=== PATIENT | male | born 1950 | race Caucasian/White ===

== ENCOUNTER 2019-02-19 15:29 | Emergency (ER) | payer MEDICARE ==
[~2019-02-19] VITALS: Ht 154.9 cm; Wt 75.9 kg
[~2019-02-19 15:29] MED LIST: CEPH-443 PO; CLOT30CR24 TOP
[2019-02-19 15:35] VITALS: Ht 154.9 cm; Wt 75.9 kg
--- NOTE | 2019-02-19 15:56 | ERD ---
ER Documentation Chief Complaint Chief Complaint R groin/leg swelling X 6 wks, intermittent pain 06/23 HPI 68-year-old male, with history of hypertension and CHF, currently on Xarelto, presents to the emergency department, complaining of 6 weeks with progressive worsening of right lower extremity edema and pain. The patient denies history of recent traveling, no history of malignancy, according to the patient, no history of pulmonary embolism or DVT. The patient has a primary care doctor at [facility]. ROS All systems reviewed and are negative except as per history of present illness. Medications Home Meds Active Scripts Tramadol HCl (Tramadol HCl) 50 Mg Tablet, 50 MG PO QHS PRN for PAIN, #10 TAB Prov:KATHRYN ZUNIGA MD 02/19/19 Cephalexin* (Keflex*) 500 Mg Capsule, 500 MG PO BID for 7 Days, CAP Prov:NICOLE JACOBSEN NP 07/26/15 Clotrimazole* (Clotrimazole* AF) 1% - 30 Gm Cream.gm., 1 APPLIC TOP BID for 7 Days, TUB Prov:NICOLE JACOBSEN NP 07/26/15 Allergies Allergies: Coded Allergies: No Known Allergy (Unverified , 07/26/15) PMhx/Soc History of Surgery: No Anesthesia Reaction: No Hx Neurological Disorder: No Hx Respiratory Disorders: No Hx Cardiac Disorders: Yes (HTN, UNSPECIFIED CARDIAC DX) Hx Psychiatric Problems: No Hx Miscellaneous Medical Probl: No Hx Alcohol Use: No Hx Substance Use: No Hx Tobacco Use: No Smoking Status: Never smoker FmHx Family History: No diabetes, No coronary disease Physical Exam Vitals Vital Signs Date Temp Pulse Resp B/P (MAP) Pulse Ox O2 O2 Flow FiO2 Time Delivery Rate 02/19/19 98.8 92 18 176/71 95 15:35 (106) Physical Exam Const: No acute distress Head: Atraumatic Eyes: Normal Conjunctiva ENT: Normal External Ears, Nose and Mouth. Neck: Full range of motion. No meningismus. Resp: Clear to auscultation bilaterally Cardio: Regular rate and rhythm, no murmurs Abd: Soft, non tender, non distended. Normal bowel sounds Skin: No petechiae or rashes Back: No midline or flank tenderness Ext: No cyanosis, or edema Neur: Awake and alert Psych: Normal Mood and Affect Result Diagram: 02/19/19 1613 02/19/19 1613 Results 24 hrs Laboratory Tests Test 02/19/19 16:12 02/19/19 16:13 Prothrombin Time 17.3 Sec Prothrombin Time Ratio 1.4 INR International Normalized Ratio 1.40 Activated Partial Thromboplast Time 35.2 Sec White Blood Count 6.7 10^3/ul Red Blood Count 4.24 10^6/ul Hemoglobin 13.3 g/dl Hematocrit 38.7 % Mean Corpuscular Volume 91.3 fl Mean Corpuscular Hemoglobin 31.4 pg Mean Corpuscular Hemoglobin Concent 34.4 g/dl Red Cell Distribution Width 12.7 % Platelet Count 196 10^3/UL Mean Platelet Volume 8.8 fl Immature Granulocytes % 0.400 % Neutrophils % 74.2 % Lymphocytes % 13.8 % Monocytes % 10.1 % Eosinophils % 0.9 % Basophils % 0.6 % Nucleated Red Blood Cells % 0.0 /100WBC Immature Granulocytes # 0.030 10^3/ul Neutrophils # 5.0 10^3/ul Lymphocytes # 0.9 10^3/ul Monocytes # 0.7 10^3/ul Eosinophils # 0.1 10^3/ul Basophils # 0.0 10^3/ul Nucleated Red Blood Cells # 0.0 10^3/ul Urine Color STRAW Urine Clarity CLEAR Urine pH 7.0 Urine Specific [place] 1.009 Urine Ketones NEGATIVE mg/dL Urine Nitrite NEGATIVE mg/dL Urine Bilirubin NEGATIVE mg/dL Urine Urobilinogen NEGATIVE mg/dL Urine Leukocyte Esterase NEGATIVE Tony/ul Urine Hemoglobin NEGATIVE mg/dL Urine Glucose NEGATIVE mg/dL Urine Total Protein NEGATIVE mg/dl Sodium Level 131 mmol/L Potassium Level 4.7 mmol/L Chloride Level 97 mmol/L Carbon Dioxide Level 23 mmol/L Anion Gap 11 Blood Urea Nitrogen 12 mg/dl Creatinine 0.67 mg/dl Est Glomerular Filtrat Rate mL/min > 60 mL/min Glucose Level 132 mg/dl Calcium Level 8.9 mg/dl Total Bilirubin 0.3 mg/dl Direct Bilirubin 0.00 mg/dl Indirect Bilirubin 0.3 mg/dl Aspartate Amino Transf (AST/SGOT) 24 IU/L Alanine Aminotransferase (ALT/SGPT) 17 IU/L Alkaline Phosphatase 107 IU/L Total Protein 8.3 g/dl Albumin 4.5 g/dl Globulin 3.80 g/dl Albumin/Globulin Ratio 1.18 DIAGNOSTIC IMAGING REPORT Patient: CONNIE HENDRIX : 1950 Age: 68 Sex: M MR #: [id number] DOS: 02/19/19 1601 Ordering MD: KATHRYN ZUNIGA MD Location: FT Room/Bed: PROCEDURE: US Lower extremity Venous. CLINICAL INDICATION: Right leg edema TECHNIQUE: Multiple sonographic images of the right lower extremity deep veno us system was obtained utilizing grayscale, color-flow, compressive sonography and doppler imaging with augmentation. The images were reviewed on a PACS workstation. COMPARISON: None. FINDINGS: There is normal compressibility and flow within the right common femoral, femoral, posterior tibial, peroneal and popliteal veins. RPTAT: AA IMPRESSION: No sonographic evidence for deep venous thrombosis. .Ceasar Heck MD, MD Date Time Electronically viewed and signed by .Ceasar Heck MD, MD on 02/19/2019 16:39 .S/ CC: KATHRYN ZUNIGA MD [phone] Departure Diagnosis: Primary Impression: Edema of right lower extremity Additional Impression: No history of deep vein thrombosis (DVT) Condition: Stable Additional Instructions: Muchas leno por [facility] para forbes servicio. Esperamos que en forbes visita a la shannon de emergencia forbes problema medico haya sido solucionado y que se sienta mucho mejor. Para estar seguros que forbes mejoria sigue en proceso, le pedimos el favor de hacer jeff анна de seguimiento medico con forbes doctor primario en los proximos 2-4 cheng. Lleve con usted estos documentos y las medicinas recetadas. Si marie sintomas empeoran, NO SE ESPERE, por favor regrese a shannon de emergencia INMEDIATAMENTE. En aydee que usted no tenga un mdico de atencin primaria: Llame al mdico o clnica comunitaria de referencia que aparece abajo elina las horas de consultorio para hacer jeff анна para que le vean. CLINICAS: [facility] [phone] [facility] [phone] [id number] [facility] [phone] [facility] [phone] [place] [phone] [facility]. [phone] KATHRYN RIOS MD February 19, 2019 15:56
[2019-02-19] MEDS ORDERED: TRAM50TA2 PO (17:40)
[2019-02-19 19:00] VITALS: BP 150/65; PULSE 88; RESP 18
== END 2019-02-19 21:15 | disposition home or self-care (01) ==
LOC: FTE 15:29
DX: R60.0 Localized edema (principal); I50.9 Heart failure, unspecified; I11.9 Hypertensive heart disease without heart failure; Z79.01 Long term (current) use of anticoagulants
CPT/HCPCS: 80053; 81003; 85025; 85610; 85730; 93971